=== PATIENT | female | born 1995 | race Two or more races ===

== ENCOUNTER 2022-08-31 21:09 | Emergency (ER) | payer BC ==
[2022-08-31 21:18] VITALS: TEMP 97.9
[2022-08-31] MEDS ORDERED: MORPHINE SULFATE 4 MG/ML SYRINGE IVP STA ×2 (21:29→22:32)
--- NOTE | 2022-08-31 21:57 | XR ---
EXAMINATION TYPE: XR chest 1V portable DATE OF EXAM: 08/31/2022 9:51 PM COMPARISON: None available at this time. TECHNIQUE: XR chest 1V portable . CLINICAL INDICATION:Female, 27 years old with history of trauma; FINDINGS: Lungs/Pleura: There is no evidence of pleural effusion, focal consolidation, or pneumothorax. Pulmonary vascularity: Unremarkable. Heart/mediastinum: Cardiomediastinal silhouette is unremarkable. Musculoskeletal: Right midclavicular fracture with superior displacement of the distal fracture ousmane ns. Acromioclavicular and sternoclavicular joints appear normally aligned. IMPRESSION: 1. Mid right clavicular fracture with superior displacement. 2. No acute cardiopulmonary process.
[2022-08-31] MEDS ORDERED: KETOROLAC 15 MG/ML 1 ML VIAL IVP STA (22:32)
[2022-08-31] MEDS ORDERED: LIDOCAINE 5% PATCH TOPICAL SCH (22:45)
--- NOTE | 2022-08-31 22:58 | CT ---
EXAMINATION TYPE: CT brain cspine wo con DATE OF EXAM: 08/31/2022 COMPARISON: NONE HISTORY: FELL OFF HORSE with headache and neck pain. CT DLP: 1462.3 mGycm. Automated Exposure Control for Dose Reduction was Utilized. TECHNIQUE: CT scan of the head and cervical spine are performed without contrast. FINDINGS: There is no acute intracranial hemorrhage, mass effect, or midline shift identified. The ventricles and sulci are within normal limits in size. Gonzalez-white matter differentiation is maintain ed. The globes are intact and the visualized sinuses are clear. Small posterior right frontal scalp hematoma axial image 45. The calvarium is intact. Cervical spine is visualized in its entirety from C1 through upper thoracic levels and demonstrates l evoconvex scoliosis or positioning centered mid to lower cervical spine without evidence of acute fra cture or dislocation. Prevertebral soft tissue appears within normal limits. The C1-C2 articulation is within normal limits on the coronal images. Vertebral body heights and disc space heights are ma intained. Spinal canal is preserved. Axial images show small Central posterior disc herniation at C5- C6 level on axial image 83. Thyroid gland appears within normal limits. Lung apices show no pneumotho rax. IMPRESSION: 1. There is no acute fracture or dislocation evident in the cervical spine. 2. No acute intracranial hemorrhage or midline shift is seen.
--- NOTE | 2022-08-31 23:00 | CT ---
EXAMINATION TYPE: CT chest wo con DATE OF EXAM: 08/31/2022 COMPARISON: NONE HISTORY: FELL OFF HORSE with pain. CT DLP: 418.5 mGycm. Automated Exposure Control for Dose Reduction was Utilized. TECHNIQUE: CT scan of the thorax is performed without IV contrast. FINDINGS: LUNGS: Some dependent atelectasis bilaterally. No suspicious focal consolidation. There is no pleura l effusion or pneumothorax seen. The tracheobronchial tree is patent. MEDIASTINUM: Lack of IV contrast is noted to limit evaluation for mediastinal and especially hilar ad enopathy. There are no definitive greater than 1 cm mediastinal lymph nodes. No cardiomegaly or per icardial effusion is seen. OTHER: No additional significant abnormality is seen. IMPRESSION: Suboptimal study without IV contrast. No acute posttraumatic finding clearly identified.
--- NOTE | 2022-08-31 23:14 | ED ---
General Adult HPI - General Chief complaint: Fall Stated complaint: Fall Time Seen by Provider: 08/31/22 21:21 Source: patient Mode of arrival: wheelchair Limitations: no limitations - History of Present Illness Initial comments: This is a 27-year-old female with no past medical history presents emergency department for a fall off of her horse. The patient stated that she was riding her horse when she fell off, landing on the right side of her shoulder. The patient had immediate pain. The patient stated that this happened at 7:45 PM and came to the emergency department shortly after. The patient was in significant distress and pain secondary to pain in the right shoulder and right topical. The patient stated that she did hit her head but did not lose consciousness. The patient denied any other trauma at this time. The patient was ambulatory on scene. - Related Data Previous Rx's Medication Instructions Recorded HYDROcodone/APAP 5-325MG [[place] 1 tab PO Q6HR PRN 3 Days #12 tab 08/31/22 5-325] Lidocaine 5% Patch [Lidoderm] 1 patch TOPICAL DAILY #14 patch 08/31/22 Naproxen [EC-Naprosyn] 500 mg PO BID #30 tab 08/31/22 Allergies Allergy/AdvReac Type Severity Reaction Status Date / Time No Known Allergies Allergy Verified 08/31/22 21:18 Review of Systems ROS Statement: Those systems with pertinent positive or pertinent negative responses have been documented in the HPI. ROS Other: All systems not noted in ROS Statement are negative. Past Medical History Past Medical History: No Reported History History of Any Multi-Drug Resistant Organisms: None Reported Past Surgical History: No Surgical Hx Reported Past Psychological History: No Psychological Hx Reported Smoking Status: Never smoker Past Alcohol Use History: None Reported Past Drug Use History: None Reported General Exam Limitations: no limitations General appearance: alert, in distress (Secondary to right clavicle pain) Head exam: Present: atraumatic, normocephalic, normal inspection Eye exam: Present: normal appearance, PERRL Pupils: Present: normal accommodation ENT exam: Present: normal exam, normal oropharynx, mucous membranes moist Neck exam: Present: normal inspection, full ROM Respiratory exam: Present: normal lung sounds bilaterally Cardiovascular Exam: Present: regular rate, normal rhythm, normal heart sounds GI/Abdominal exam: Present: soft, normal bowel sounds Extremities exam: Present: tenderness (tenderness palpation to the right mid clavicle without significant deformity noted. The patient had decreased range of motion secondary to pain.) Back exam: Present: normal inspection, full ROM Neurological exam: Present: alert, oriented X3, CN II-XII intact Psychiatric exam: Present: normal affect, normal mood Skin exam: Present: warm, dry Course Vital Signs 08/31/22 08/31/22 21:15 23:19 Temperature 97.9 F 97.9 F Pulse Rate 96 89 Respiratory 20 16 Rate Blood Pressure 131/93 130/79 O2 Sat by Pulse 98 Oximetry Medical Decision Making - Medical Decision Making Was pt. sent in by a medical professional or institution (, PA, RESEARCH RN SPEC, urgent care, hospital, or penitentiary...) When possible be specific @ -No Did you speak to anyone other than the patient for history (EMS, parent, family, police, friend...)? What history was obtained from this source @ -No Did you review nursing and triage notes (agree or disagree)? Why? @ -I reviewed and agree with nursing and triage notes Were old charts reviewed (outside hosp., previous admission, EMS record, old EKG, old radiological studies, urgent care reports/EKG's, penitentiary records)? Report findings @ -No old charts were reviewed Differential Diagnosis (chest pain, altered mental status, abdominal pain women, abdominal pain men, vaginal bleeding, weakness, fever, dyspnea, syncope, headache, dizziness, GI bleed, back pain, seizure, CVA, palpatations, mental health)? @ -Clavicle fracture, rib fracture, pneumothorax EKG interpreted by me (3pts min.). @ -As above X-rays interpreted by me (1pt min.). @ -Chest x-ray was obtained and was interpreted by myself showing a mid right clavicle fracture with superior displacement. There was no other pathology noted. CT interpreted by me (1pt min.). @ -CT head, CT C-spine and CT of the chest was obtained and was interpreted by myself showing chest CT did not show any pathology. Head CT and CT C-spine were also negative. U/S interpreted by me (1pt. min.). @ -None done What testing was considered but not performed or refused? (CT, X-rays, U/S, labs)? Why? @ -None What meds were considered but not given or refused? Why? @ -None Did you discuss the management of the patient with other professionals (professionals i.e. , PA, RESEARCH RN SPEC, lab, RT, psych nurse, social work nurse, documentation billing clerk, teacher, sewage reticulation drafting officer, rn field case manager)? Give summary @ -No Was smoking cessation discussed for >3mins.? @ -No Was critical care preformed (if so, how long)? @ -No Were there social determinants of health that impacted care today? How? (Homelessness, low income, unemployed, alcoholism, drug addiction, transportation, low edu. Level, literacy, decrease access to med. care, custodial, rehab)? @ -No Was there de-escalation of care discussed even if they declined (Discuss DNR or withdrawal of care, Hospice)? DNR status @ -No What co-morbidities impacted this encounter? (DM, HTN, Smoking, COPD, CAD, Cancer, CVA, ARF, Chemo, Hep., AIDS, mental health diagnosis, sleep apnea, morbid obesity)? @ -None Was patient admitted / discharged? Hospital course, mention meds given and route, prescriptions, significant lab abnormalities, going to OR and other pertinent info. @ -The patient was seen and evaluated emergency department. On physical exam, the patient was resting in bed in significant distress secondary to pain. The patient was given pain medications on arrival and imaging was performed showing a clavicle fracture on the right. The patient denied of any other abnormalities noted and on reevaluation did have significant resolution of her pain. The patient initially was placed in a c-collar however due to negative imaging this was removed. The patient was placed in a sling and was given a prescription for [place], naproxen as well as lidocaine patches and told to follow-up with orthopedic surgery. The patient was agreeable to this and all of her questions were answered. The patient was discharged home in stable condition with her family. Undiagnosed new problem with uncertain prognosis? @ -No Drug Therapy requiring intensive monitoring for toxicity (Heparin, Nitro, Insulin, Cardizem)? @ -No Were any procedures done? @ -No Diagnosis/symptom? @ -Right mid clavicular fracture Acute, or Chronic, or Acute on Chronic? @ -Acute Uncomplicated (without systemic symptoms) or Complicated (systemic symptoms)? @ -Uncomplicated Side effects of treatment? @ -No Exacerbation, Progression, or Severe Exacerbation? @ -No Poses a threat to life or bodily function? How? (Chest pain, [place], [place], pneumonia, PE, COPD, DKA, ARF, appy, cholecystitis, CVA, Diverticulitis, Homicidal, Suicidal, threat to staff... and all critical care pts) @ -No Disposition Clinical Impression: Fall, Clavicle fracture Disposition: HOME SELF-CARE Condition: Stable Instructions (If sedation given, give patient instructions): Clavicle Fracture (DC) Prescriptions: Naproxen [EC-Naprosyn] 500 mg PO BID #30 tab Lidocaine 5% Patch [Lidoderm] 1 patch TOPICAL DAILY #14 patch HYDROcodone/APAP 5-325MG [[place] 5-325] 1 tab PO Q6HR PRN 3 Days #12 tab PRN Reason: Pain Is patient prescribed a controlled substance at d/c from ED?: Yes When asked, does pt state using other controlled substances?: No If prescribed controlled substance>3 days was MAPS reviewed?: Prescribed <3 Days If opioid is for acute pain is fill amount 7 days or less?: Yes If Rx opioid, was Start Talking consent form obtained?: Yes Referrals: Joaquina Ochoa NPC [Primary Care Provider] - 1-2 days Jassi Nelson DO [Doctor of Osteopathic Medicine] - 09/02/22 Time of Disposition: 23:00
[2022-08-31] MEDS ORDERED: HYDROcodone/APAP 5-325MG 1 EACH TAB PO STA (23:15)
[2022-08-31 23:20] VITALS: BP 130/79; PULSE 89; RESP 16
== END 2022-08-31 23:22 | disposition home or self-care (01) ==
LOC: EC 21:09
DX: S42.001A Fracture of unspecified part of right clavicle, initial encounter for closed fracture (principal); W18.30XA Fall on same level, unspecified, initial encounter; Y93.52 Activity, horseback riding
CPT/HCPCS: 71045; 72125; 70450; 71250; 99284; 96374; 96375; 96376; J2270; J1885